=== PATIENT | female | born 1970 | race Caucasian/White ===

== ENCOUNTER → 2021-09-17 09:49 | Outpatient (CLI) | payer OTHER, SELFPAY ==
--- NOTE | ~2021-09-17 | CT_ITS ---
EXAMINATION: CT abdomen pelvis w con INDICATION: Left-sided abdominal pain TECHNIQUE: Computed tomographic images of the abdomen and pelvis were obtained after the administrati on of 100 cc of Omnipaque 350 intravenous contrast. The dose-length product (DLP) was 885.23 mGy-cm. Automated exposure control and iterative reconstruction technique were employed. COMPARISON: None available FINDINGS: Minimal dependent atelectasis is present in the lung bases. The heart size is normal. There is a small sliding hiatal area. There is a 9 mm cyst of the left hepatic lobe. The spleen, pancreas, gallbladder, and adrenal glands are normal. The kidneys are unremarkable. No pathologically enlarged abdominal or pelvic lymph nodes are identified. There is no free intraperitoneal gas or evidence of bowel obstruction. There is a small fat-containing umbilical hernia. Mild lumbar spondylosis is noted . There is a focal area of circumscribed fat attenuation anterior to the mid descending colon. IMPRESSION: 1. Possible epiploic appendagitis of the descending colon. Recommend correlation for left mid/lateral anterior abdominal pain. Reviewed, dictated and finalized at location A. IMPRESSION: 1. Possible epiploic appendagitis of the descending colon. Recommend correlatio n for left mid/lateral anterior abdominal pain.
[2021-09-17 10:33] LABS: Estimated Glomerular Filt Rate 58
== END ==
PROVIDERS: PCP Physician Assistant Medical; Visit Provider Physician Assistant Medical
DX: R10.9 Unspecified abdominal pain (principal)
CPT/HCPCS: 74177; Q9967

== ENCOUNTER → 2022-02-03 07:35 | Outpatient (CLI) | payer OTHER, SELFPAY ==
--- NOTE | ~2022-02-03 | US_ITS ---
EXAMINATION: US right upper quadrant DATE: 02/03/2022 08:10 INDICATION: Abdominal pain. TECHNIQUE: Multiple grayscale and Doppler ultrasound images of the abdomen were obtained. COMPARISON: CT abdomen and pelvis 09/17/2021 FINDINGS: Abdominal aorta is normal in caliber. The visualized portions of the head and body of the p ancreas are normal. There is diffuse hepatic steatosis. No liver surface nodularity. The gallbladder is normal in size and contains sludge. No gallstones or gallbladder wall thickening. There was no son ographic Amin sign. The common duct is normal and measures 4 mm. IMPRESSION: 1. Diffuse hepatic steatosis. 2. Gallbladder sludge. No evidence of acute cholecystitis. Reviewed, dictated and finalized at location A.
== END ==
PROVIDERS: PCP Internal Medicine; Visit Provider Physician Assistant Medical
DX: R10.9 Unspecified abdominal pain (principal); K76.0 Fatty (change of) liver, not elsewhere classified
CPT/HCPCS: 76705

== ENCOUNTER 2025-01-09 15:16 | Outpatient (CLI) | payer OTHER, SELFPAY ==
--- NOTE | ~2025-01-09 | MR_ITS ---
EXAMINATION: MR knee RT wo con DATE: 01/09/2025 15:59 INDICATION: Right knee pain TECHNIQUE: Magnetic resonance imaging (MRI) of the right knee was performed without intravenous contr ast. Sequences included coronal PD-weighted FSE, coronal PD-weighted FS FSE, sagittal T2-weighted FS E, sagittal PD-weighted FS FSE and axial PD weighted fat saturated FSE. COMPARISON: None. FINDINGS: Medial compartment: Partial thickness radial tear/avulsion from the root of the posterior/peripheral portion of the poste rior horn of the medial meniscus. There is cystic change underlying the footplate of the posterior cr uciate ligament. There is partial thickness cartilage loss with minimal chondral surface regularity a long the anterior to central weightbearing medial femoral condyle. There is additional shallow chondr al fissuring at the central aspect of the medial tibial plateau and mild partial-thickness cartilage loss with smooth chondral surface along the anterior third of the medial tibial plateau. Lateral compartment: Lateral meniscus is normal. There is deep chondral fissuring without degenerative subchondral changes at the central aspect of the lateral tibial plateau and at the juxtaposed anterior weightbearing lat eral femoral condyle. Patellofemoral compartment: There is partial thickness trochlear chondral ulceration inferior to the medial trochlea and trochlea r groove and at the medial side of the lateral trochlea. Partial-thickness chondral ulceration with d eep chondral fissure at the central aspect of the patellar apical ridge. Ligaments and tendons: Anterior and posterior cruciate ligaments are normal. Mild low signal thickening of the proximal medi al collateral ligament consistent with scarring related to chronic sprain. There is mild edema at the posterior medial aspect of the knee including about the medial collateral ligament and could not exc lude acute reinjury in the setting of recent trauma. The extensor mechanism is normal. The visualized medial and lateral hamstring tendons as well as the iliotibial band are normal. Fluid: Small right knee joint effusion. No loose osteochondral bodies identified. 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 The edema at the posterior medial aspect of the knees most prominent along the c audal margin of the Berkowitz's cyst suggesting this could be related to partial rupture of the cyst. 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 No fracture or pathologic marrow replacing process. IMPRESSION: 1. Partial thickness tear/avulsion at the root of the posterior/peripheral posterior horn of the medi al meniscus. 2. 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 3. Scarring consistent with chronic sprain of the proximal medial collateral ligament is surrounding edema which could be related to recurrent low-grade sprain is favored acute injury versus edema relat ed to partial rupture of a large Berkowitz's cyst. Reviewed, dictated and finalized at location A. 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 Partial thickness tear/avulsion at the root of the posterior/peripheral post erior horn of the medial meniscus. 2. 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 3. Scarring consistent with chronic sprain of the proximal medial collateral li gament is surrounding edema which could be related to recurrent low-grade sprai n is favored acute injury versus edema related to partial rupture of a large Ba ker's cyst.
== END 2025-01-09 15:17 | disposition home or self-care (01) ==
PROVIDERS: PCP Physician Assistant Medical; Visit Provider Physician Assistant Medical
DX: M17.11 Unilateral primary osteoarthritis, right knee (principal)
CPT/HCPCS: 73721